=== PATIENT | female | born 1980 | race Caucasian/White ===

== ENCOUNTER 2016-05-15 10:15 | Emergency (ER) | payer OTHER ==
[~2016-05-15] VITALS: Wt 71.0 kg
[~2016-05-15 10:15] MED LIST: ACET-1359 PO; ACET-820 PO
[2016-05-15] MEDS ORDERED: ACET/BUTAL/CAFF/CODEINE CAP PO ONE (11:30)
[2016-05-15 11:35] LABS: URINE BLOOD (Dip) POC Negative (NEGATIVE)
--- NOTE | 2016-05-15 11:50 | ERD ---
ER Documentation Chief Complaint Date/Time DATE: 05/15/16 TIME: 11:44 Chief Complaint HEADACHE N/V X 3 DAYS HPI This is a 36-year-old female presenting to the emergency department for headache and nausea 2 days. Patient describes a right-sided frontal headache that radiates to the top of her head. Patient states she is sensitive to noise and light. Patient has nausea however no vomiting. No weakness or change in vision. No head trauma or fall. No change in mood or behavior. No slurred speech, facial droop or numbness or tingling to extremities. Patient states she has chronic headaches that feel exactly the same as this headache. Patient is not on any medications for chronic headaches. Patient takes Advil as needed. No dysuria or hematuria. Last menstrual period was 3 weeks ago. ROS All systems reviewed and are negative except as per history of present illness. Medications Home Meds Active Scripts Udaebmjxigggs-Gzndsgihfr-Oajxztqt-Codeine* (Fioricet w/Codeine*) [id number] -30MG Cap, 1 CAP PO Q4H Y for PAIN LEVEL 1-5, #15 CAP Prov:PARRISH BROWN ENVIRONMENTAL ENGINEERING TECHNICIAN 05/15/16 Reported Medications Acetaminophen (TYLENOL 500 MG TAB) 500 Mg Tab, 500 MG PO Y 12/11/12 Acetaminophen With Codeine (Tylenol-Codeine #4) 1 Tab Tablet, 1 TAB PO 12/11/12 Allergies Allergies: Coded Allergies: No Known Allergy (Verified , 09/20/13) PMhx/Soc History of Surgery: Yes (, RENNY) Anesthesia Reaction: No Hx Neurological Disorder: No Hx Respiratory Disorders: No Hx Cardiac Disorders: No Hx Psychiatric Problems: No Hx Miscellaneous Medical Probl: Yes (MIGRAINE ) Hx Alcohol Use: No Hx Substance Use: No Hx Tobacco Use: No Physical Exam Vitals Vital Signs Date Time Temp Pulse Resp B/P Pulse Ox O2 Delivery O2 Flow Rate FiO2 05/15/16 13:20 98.1 74 18 124/68 99 Room Air 05/15/16 10:18 98.4 72 18 139/73 99 Physical Exam Const: No acute distress, alert, oriented to person place and time. Head: Atraumatic Eyes: Normal Conjunctiva, PERRL ENT: Normal External Ears, Nose and Mouth. Neck: Full range of motion..~ No meningismus. Resp: Clear to auscultation bilaterally Cardio: Regular rate and rhythm, no murmurs Abd: Soft, non tender, non distended. Normal bowel sounds Skin: No petechiae or rashes Back: No midline or flank tenderness Ext: No cyanosis, or edema. Strength is equal bilaterally to upper extremities. Neur: Awake and alert Psych: Normal Mood and Affect Results 24 hrs Laboratory Tests Test 05/15/16 11:34 Bedside Urine pH (LAB) 6.5 Bedside Urine Protein (LAB) Negative Bedside Urine Glucose (UA) Negative Bedside Urine Ketones (LAB) Negative Bedside Urine Blood Negative Bedside Urine Nitrite (LAB) Negative Bedside Urine Leukocyte Esterase (L Negative Current Medications Medications (Trade) Dose Ordered Sig/Juana Route PRN Reason Start Time Stop Time Status Last Admin Dose Admin Acetam/Butalbital/ Caffeine/Codeine (Fioricet/ Codeine) 1 cap ONCE ONCE PO 05/15/16 11:30 05/15/16 11:31 DC 05/15/16 11:29 Procedures/MDM ED COURSE: The patient was stable throughout ED course. I kept the patient and/or family informed of laboratory and diagnostic imaging results throughout the ED course. Fioricet with codeine given per operations staff specialist security. Laboratory Urine dip negative Urine negative MDM: 36-year-old female presents emergency department for headache and nausea 2 days. Patient has history of chronic headaches and states this headache feels exactly the same as previous headaches. No change in mood or behavior. No weakness or facial droop. Strength is equal bilaterally to upper extremities. Patient has had nausea however no vomiting. Denies abdominal pain. No head trauma or recent injury or fall. Patient given Fioricet with codeine while in the ED. Urine is negative for infection. Urine is negative for . No fevers or chills. Low suspicion for CVA, TIA, UTI, meningitis or acute etiology. Differential diagnosis tension headache vs. migraine headache. Patient is appropriate for outpatient management will be given prescription for Fioricet with codeine. Instructed patient to follow-up with primary care provider in the next 24-48 hours for reassessment and additional management. Return to ED for any high fever, chest pain, difficulty breathing, shortness breath, wheezing, vomiting, diarrhea, abdominal pain or any new or worsening symptoms. Patient verbalizes understanding. All questions answered at discharge. Yoruba translation use during this encounter. Departure Diagnosis: Primary Impression: Headache Headache type: unspecified Headache chronicity pattern: chronic headache Intractability: not intractable Qualified Code: R51 - Chronic nonintractable headache, unspecified headache type Condition: PARRISH Ward NP May 15, 2016 11:50
[2016-05-15] MEDS ORDERED: ABCC1C PO (13:09)
[2016-05-15 13:20] VITALS: BP 124/68; PULSE 74; RESP 18; TEMP 98.1
== END 2016-05-15 13:21 | disposition home or self-care (01) ==
LOC: FTE 10:15
DX: R51 Headache (principal)
CPT/HCPCS: 81003; Z7502; Z7610; 99283

== ENCOUNTER 2016-09-20 16:30 | Emergency (ER) | payer OTHER ==
[~2016-09-20] VITALS: Ht 157.5 cm; Wt 55.5 kg
[~2016-09-20 16:30] MED LIST changes: +ABCC1C PO
[2016-09-20 16:35] VITALS: Ht 157.5 cm; Wt 55.5 kg
[2016-09-20] MEDS ORDERED: KETOROLAC 30 MG INJ IV STA (17:32)
[2016-09-20] MEDS ORDERED: SOD CHLORIDE 0.9% 1,000 ML IV STA (17:32)
[2016-09-20 19:01] LABS: BASOPHIL # 0.1 10^3/ul (0.0-0.1); BASOPHILS % 0.7 % (0.0-2.0); EOSINOPHILS # 0.1 10^3/ul (0.0-0.5); EOSINOPHILS % 0.7 % (0.0-7.0); HEMATOCRIT 41.6 % (37.0-47.0); HEMOGLOBIN 13.9 g/dl (12.0-16.0); LYMPHOCYTES # 1.3 10^3/ul (0.8-2.9); LYMPHOCYTES % 9.9 % (15.0-51.0); MEAN CORPUSCULAR HEMOGLOBIN 30.8 pg (29.0-33.0); MEAN CORPUSCULAR HGB CONC 33.4 g/dl (32.0-37.0); MEAN CORPUSCULAR VOLUME 92.2 fl (82.0-101.0); MEAN PLATELET VOLUME 11.3 fl (7.4-10.4); MONOCYTE # 0.4 10^3/ul (0.3-0.9); MONOCYTES % 3.2 % (0.0-11.0); NEUTROPHIL # 11.5 10^3/ul (1.6-7.5); NEUTROPHILS % 85.1 % (39.0-77.0); PLATELET COUNT 260 10^3/UL (140-415); RED BLOOD COUNT 4.51 10^6/ul (4.20-5.40); WHITE BLOOD COUNT 13.5 10^3/ul (4.8-10.8)
--- NOTE | 2016-09-20 19:18 | ERD ---
ER Documentation Chief Complaint Date/Time DATE: 09/20/16 TIME: 19:12 Chief Complaint Complains of a headache and neck pain HPI This is a very pleasant 36-year-old female with no past medical history that presents to the emergency department complaining of right-sided chest pain and right arm pain that been present for the past 3 days. She states that she is also experiencing pain over the right side of her neck and awoke this morning at 8 AM with a unilateral right-sided headache. She states it was pulsating in nature. She denied any changes in vision. She has had no fevers or shaking or chills. She denies any recent head trauma. The patient indicates that she has been driving several hours for the past 3 days at her work and undergoing heavy lifting with her right upper extremity and she is right-handed dominant. She states that the pain in her right arm chest wall and neck is exacerbated whenever she moves. She did not take any analgesic medication prior to arrival. She denies any recent travel. She denies any calf tenderness and no shortness of breath at rest or exertion. ROS All systems reviewed and are negative except as per history of present illness. Medications Home Meds Active Scripts Jngagatoxzrjr-Ymfifvqamy-Myxolelr-Codeine* (Fioricet w/Codeine*) [id number] -30MG Cap, 1 CAP PO Q4H Y for PAIN LEVEL 1-5, #15 CAP Prov:PARRISH BROWN Mat AUTOCAD DETAILER 05/15/16 Reported Medications Acetaminophen (TYLENOL 500 MG TAB) 500 Mg Tab, 500 MG PO Y 12/11/12 Acetaminophen With Codeine (Tylenol-Codeine #4) 1 Tab Tablet, 1 TAB PO 12/11/12 Allergies Allergies: Coded Allergies: No Known Allergy (Verified , 09/20/13) PMhx/Soc History of Surgery: Yes (, RENNY) Anesthesia Reaction: No Hx Neurological Disorder: No Hx Respiratory Disorders: No Hx Cardiac Disorders: No Hx Psychiatric Problems: No Hx Miscellaneous Medical Probl: Yes (MIGRAINE ) Hx Alcohol Use: No Hx Substance Use: No Hx Tobacco Use: No Smoking Status: Never smoker Physical Exam Vitals Vital Signs Date Time Temp Pulse Resp B/P Pulse Ox O2 Delivery O2 Flow Rate FiO2 09/20/16 16:35 97.4 68 20 113/61 100 Physical Exam Constitutional:Well-developed. Well-nourished. HEENT:Normocephalic. Atraumatic.Pupils were equal round reactive to light. Moist mucous membranes.No tonsillar exudates. Funduscopy exam shows sharp optic disc bilaterally venous pulsations are present Neck: No nuchal rigidity. No lymphadenopathy. No posterior cervical spine tenderness or step-offs. Respiratory: Not using accessory muscles of respiration.Lungs were clear to auscultation bilaterally. No rhonchi. No rales. No wheezing. Cardiovascular: Regular rate regular rhythm.No murmurs. No rubs were appreciated.S1, S2 normal. Distal pulses are palpable 2+ bilaterally. Reproducible right-sided chest wall tenderness with no crepitus no ecchymosis no flail chest GI: Abdomen was soft. Nontender. Non Distended. No pulsatile abdominal masses or bruits. No rebound. No guarding. Bowel sounds were present and normal. Muscle skeletal: Full range of motion of both the upper and lower extremities bilaterally.Normal muscle tone.No assymetrical calf tenderness or swelling. Compartments of the bilateral upper extremities were soft Skin: No petechia, no purpura. No lesions on the palms or the soles of the feet. No maculopapular rash. NEURO: Patient was alert, awake, orientated x3.No facial droop. Gait observed and normal with no ataxia.Speech had regular rate and rhythm. No focal neurological deficits. Result Diagram: 09/20/[id number] Results 24 hrs Laboratory Tests Test 09/20/16 18:45 White Blood Count 13.510^3/ul Red Blood Count 4.5110^6/ul Hemoglobin 13.9g/dl Hematocrit 41.6% Mean Corpuscular Volume 92.2fl Mean Corpuscular Hemoglobin 30.8pg Mean Corpuscular Hemoglobin Concent 33.4g/dl Red Cell Distribution Width 12.0% Platelet Count 61179^3/UL Mean Platelet Volume 11.3fl Neutrophils % 85.1% Lymphocytes % 9.9% Monocytes % 3.2% Eosinophils % 0.7% Basophils % 0.7% Nucleated Red Blood Cells % 0.0/100WBC Neutrophils # 11.510^3/ul Lymphocytes # 1.310^3/ul Monocytes # 0.410^3/ul Eosinophils # 0.110^3/ul Basophils # 0.110^3/ul Nucleated Red Blood Cells # 0.010^3/ul Sodium Level 145mmol/L Potassium Level 3.7mmol/L Chloride Level 101mmol/L Carbon Dioxide Level 29mmol/L Anion Gap 19 Blood Urea Nitrogen 15mg/dl Creatinine 0.93mg/dl Glucose Level 106mg/dl Calcium Level 9.8mg/dl Total Bilirubin 1.5mg/dl Direct Bilirubin 0.00mg/dl Indirect Bilirubin 1.5mg/dl Aspartate Amino Transf (AST/SGOT) 17IU/L Alanine Aminotransferase (ALT/SGPT) 31IU/L Alkaline Phosphatase 80IU/L Creatine Kinase 63IU/L Creatine Kinase Index 0.7 Creatinine Kinase MB (Mass) 0.42ng/ml Troponin I < 0.012ng/ml Total Protein 7.6g/dl Albumin 4.4g/dl Globulin 3.20g/dl Albumin/Globulin Ratio 1.37 Current Medications Medications (Trade) Dose Ordered Sig/Juana Route PRN Reason Start Time Stop Time Status Last Admin Dose Admin Sodium Chloride (NS) 1,000 ml @ 1,000 mls/hr Q1H STAT IV 09/20/16 17:32 09/20/16 18:31 DC 09/20/16 17:51 Ketorolac Tromethamine (Toradol) 30 mg ONCE STAT IV 09/20/16 17:32 09/20/16 17:34 DC 09/20/16 17:51 Procedures/MDM The patient presented to the emergency department with an acute single headache that presented within hours of onset my differential diagnosis included but was not limited to meningitis, SAH, intracerebral hemorrhage, hypertensive encephalopathy, cranial artery dissection, cerebral venous sinus thrombosis, traumatic, acute sinusitis. The patient has no ocular symptoms to suggest temporal neuritis, acute narrow-angle glaucoma or pituitary apoplexy. The patient did not appear to have a toxic or metabolic etiology such as fever, hypoglycemia, high-altitude disease or carbon monoxide poisoning. This was not the patients worse headache of their life. The patient had a complete neurologic and fundoscopic exam performed by myself that was normal with no focal neurological deficits or retinal hemorrhage. The patient stated this headache was not severe or distinct from other headaches and the history with the physical exam findings did not likely suggest SAH. Therefore, I did not feel it was clinically necessary to perform a lumbar puncture and CSF analysis. The patient had received IV fluids Toradol and had complete resolution of her pain. Also obtained a CPK which showed no evidence of rhabdomyolysis. Compartments are soft with no evidence of compartment syndrome or necrotizing fasciitis. I did feel the patient's symptoms were an exacerbation of muscle skeletal pain. Troponin was negative and there is no risk factors for myocardial ischemia. The patient was discharged home in fair condition. They were instructed to return to the emergency department at any time if there was any worsening of their condition. The patient stated they would follow up with their PCP in the next 24-48 hours to initiate a suitable medication regimen under the care of their PCP as well as to allow their PCP to monitor any drug reactions. The patient was discharged home with prescriptions after they gave informed consent to the new medication. They were also fully informed by myself on the adverse effects and adverse drug interactions in order to provide adequate safeguards to prevent possible adverse reactions to medications. Departure Diagnosis: Primary Impression: Headache Headache type: unspecified Headache chronicity pattern: acute headache Intractability: not intractable Qualified Code: R51 - Acute nonintractable headache, unspecified headache type Additional Impression: Chest wall muscle strain Encounter type: initial encounter Qualified Code: S29.011A - Chest wall muscle strain, initial encounter Condition: Fair LFETYJOVI Sep 20, 2016 19:18
[2016-09-20 19:21] LABS: ALANINE AMINOTRANSFERASE 31 IU/L (13-69); ALBUMIN 4.4 g/dl (3.3-4.9); ALBUMIN/GLOBULIN RATIO 1.37; ALKALINE PHOSPHATASE 80 IU/L (42-121); ANION GAP 19 (8-16); ASPARTATE AMINO TRANSFERASE 17 IU/L (15-46); BILIRUBIN,INDIRECT 1.5 mg/dl (0-1.1); BILIRUBIN,TOTAL 1.5 mg/dl (0.2-1.3); BLOOD UREA NITROGEN 15 mg/dl (7-20); CALCIUM 9.8 mg/dl (8.4-10.2); CARBON DIOXIDE 29 mmol/L (21-31); CHLORIDE 101 mmol/L (97-110); CREATINE KINASE 63 IU/L (23-200); CREATININE 0.93 mg/dl (0.44-1.00); GLUCOSE 106 mg/dl (70-220); POTASSIUM 3.7 mmol/L (3.5-5.1); SODIUM 145 mmol/L (135-144); TOTAL PROTEIN 7.6 g/dl (6.1-8.1)
[2016-09-20 19:33] LABS: CK-MB 0.42 ng/ml (0.0-2.4)
[2016-09-20 19:56] LABS: TROPONIN-I < 0.012 ng/ml (0.00-0.12)
[2016-09-20] MEDS ORDERED: NAPR-260 PO (20:34)
[2016-09-20 20:44] VITALS: BP 117/82; PULSE 71; RESP 18; TEMP 98.2
== END 2016-09-20 20:45 | disposition home or self-care (01) ==
LOC: FTE 16:30
DX: R51 Headache (principal); S29.011A Strain of muscle and tendon of front wall of thorax, initial encounter; X58.XXXA Exposure to other specified factors, initial encounter; Y92.9 Unspecified place or not applicable
CPT/HCPCS: 80053; 82550; 82553; 84484; 85025; 96374; J1885; J7030; Z7502

== ENCOUNTER 2017-06-26 20:44 | Emergency (ER) | END 2017-06-27 00:37 | disposition home or self-care (01) ==

== ENCOUNTER 2017-09-22 20:02 | Emergency (ER) | END 2017-09-22 22:31 | disposition home or self-care (01) ==

== ENCOUNTER 2018-01-06 04:23 | Emergency (ER) | END 2018-01-06 06:51 | disposition home or self-care (01) ==

== ENCOUNTER 2018-07-12 23:09 | Emergency (ER) | payer OTHER ==
[~2018-07-12] VITALS: Wt 67.2 kg
[~2018-07-12 23:09] MED LIST changes: +BEN25 PO; +CEPH-443 PO; +CYCL10TA7 PO; +FIORICET PO; +MECL12.574 PO; +METO10TA92 PO; +NAPR-985 PO
[2018-07-13] MEDS ORDERED: LORA-441 PO (01:41)
[2018-07-13] MEDS ORDERED: IBUP-1542 PO (01:42)
[2018-07-13 01:49] VITALS: BP 130/77; PULSE 64; RESP 18
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
== END 2018-07-13 02:07 | disposition home or self-care (01) ==
LOC: FTE 23:09
DX: H57.11 Ocular pain, right eye (principal)
CPT/HCPCS: 99283